=== PATIENT | female | born 2000 | race Caucasian/White ===

== ENCOUNTER 2020-03-31 14:22 | Emergency (ER) | payer OTHER, SELFPAY ==
[2020-03-31 14:24] VITALS: BP 144/97; PULSE 105; RESP 16; TEMP 36.8; O2SAT 96; BMI 22.6
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
[2020-03-31] MEDS: diazePAM 5 MG Tablet PO (15:40)
[2020-03-31] MEDS: Naproxen 500 MG Tablet PO (15:40)
[2020-03-31 15:59] VITALS: RESP 18
== END 2020-03-31 16:00 | disposition home or self-care (01) ==
PROVIDERS: Emergency Provider Emergency Medicine
DX: S09.90XA Unspecified injury of head, initial encounter (principal); M62.838 Other muscle spasm; X58.XXXA Exposure to other specified factors, initial encounter
CPT/HCPCS: 70450; 72125; 99283